=== PATIENT | female | born 1995 | race African-American/Black ===

== ENCOUNTER 2017-03-31 16:38 | Emergency (ER) | payer OTHER ==
[~2017-03-31] VITALS: Ht 162.6 cm; Wt 59.0 kg
[2017-03-31 17:11] VITALS: BP 104/55
[2017-03-31] MEDS ORDERED: METH4TAB2 PO (17:25)
--- NOTE | 2017-03-31 18:19 | PHYS DOC ---
Past Medical History Past Medical History: No Pertinent History Past Surgical History: No Surgical History Alcohol Use: None Drug Use: None Adult General Chief Complaint Chief Complaint: SKIN RASH/ABSCESS HPI HPI Patient is a 21 year old female who presents with a rash to her abdomen and arms after she was lying in a casey at her workplace. She states that she saw a bug and killed it. She was worried that it was a bedbug. She then started developing bumps that are very itchy and red. 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 Review of Systems Review of Systems Constitutional: Denies fever or chills [] Respiratory: Denies cough or shortness of breath [] Cardiovascular: No additional information not addressed in HPI [] Musculoskeletal: Denies back pain or joint pain [] Integument: See history of present illness Neurologic: Denies headache, focal weakness or sensory changes [] Endocrine: Denies polyuria or polydipsia [] All other systems were reviewed and found to be within normal limits, except as documented in this note. Allergies Allergies Allergies Coded Allergies Type Severity Reaction Last Updated Verified No Known Drug Allergies 03/31/17 No Physical Exam Physical Exam Constitutional: Well developed, well nourished, no acute distress, non-toxic appearance. [] Cardiovascular:Heart rate regular rhythm, no murmur [] Lungs & Thorax: Bilateral breath sounds clear to auscultation [] Skin: Patient has several 1-2 cm papules on her abdomen and bilateral upper extremities that are slightly raised in the center, there are signs of excoriation to the left arm but no signs of infection Neurologic: Alert and oriented X 3, normal motor function, normal sensory function, no focal deficits noted. [] Psychologic: Affect normal, judgement normal, mood normal. [] Current Patient Data Vital Signs Vital Signs Date Time Temp Pulse Resp B/P (MAP) Pulse Ox O2 Delivery O2 Flow Rate FiO2 03/31/17 17:11 98.1 92 16 99 Room Air 98.1 EKG EKG [] Radiology/Procedures Radiology/Procedures [] Course & Med Decision Making Course & Med Decision Making Pertinent Labs and Imaging studies reviewed. (See chart for details) []1. Insect bites Please take the medication as directed for control of the itching. Please check your mattresses at home and watch for signs of bedbug infestation. Watch for signs of infection to the itchy lesions and a return to the ED if worsening. Otherwise follow-up your primary care provider for any additional healthcare needs. Dragon Disclaimer Dragon Disclaimer This electronic medical record was generated, in whole or in part, using a voice recognition dictation system. Departure Departure Impression: Primary Impression: Insect bites Disposition: HOME, SELF-CARE Condition: STABLE Patient Instructions: Bedbugs Additional Instructions: Follow-up with your primary care provider in 3 days if not improving or return to the ED if worsening. Please take the medication with food on your stomach. Try to refrain from scratching the areas. Watch for signs of infection which would include heat or drainage from the site of the bites. Scripts Methylprednisolone (MEDROL) 4 Mg Tab.ds.pk 1 PKG PO UD, #1 PKG Prov: RENEE PRINCE APRN 03/31/17 RENEE PRINCE APRN Mar 31, 2017 18:19
== END 2017-03-31 17:37 | disposition home or self-care (01) ==
LOC: ER 16:38
DX: S30.861A Insect bite (nonvenomous) of abdominal wall, initial encounter (principal); S40.862A Insect bite (nonvenomous) of left upper arm, initial encounter; S40.861A Insect bite (nonvenomous) of right upper arm, initial encounter; W57.XXXA Bitten or stung by nonvenomous insect and other nonvenomous arthropods, initial encounter; Y93.89 Activity, other specified; Y92.89 Other specified places as the place of occurrence of the external cause; Y99.8 Other external cause status
CPT/HCPCS: 99283